=== PATIENT | female | born 1965 | race Caucasian/White ===

== ENCOUNTER 2018-02-24 23:13 | Emergency (ER) | payer OTHER ==
--- NOTE | 2018-02-24 23:19 | PDOC ---
History of Present Illness - General Stated Complaint: HEAD INJURY - History of Present Illness Initial Comments: 02/24/18 23:15 Ms. Zayas is a 52 yo female w/ no pmh who presents for evaluation after hitting her head earlier today when she walked into the frame of a low door. Patient was wearing a baseball cap when this occured and was unable to see the low frame. Patient is accompanied by personal friend Dr. Ferraro (Neurolgy) who was present at event and is concerned as he has noticed evolving raccoon eyes bilaterally. This occurred at approximately 3:30pm today. Patient denies any LOC or confusion after event however patient did have some left nostril moisture. The patient denies chest pain, shortness of breath, headache and dizziness. Denies fever, chills, nausea, vomit, diarrhea and constipation. Denies dysuria, frequency, urgency and hematuria. Allergies: NKDA Past History - Past Medical History Allergies/Adverse Reactions: Allergies Allergy/AdvReac Type Severity Reaction Status Date / Time No Known Allergies Allergy Verified 02/24/18 23:22 Review of Systems - Review of Systems Comments:: 02/24/18 23:18 GENERAL/CONSTITUTIONAL: No fever or chills. No weakness. HEAD, EYES, EARS, NOSE AND THROAT: +Headache centered on site where head injury occured. No change in vision. No ear pain or discharge. No sore throat. CARDIOVASCULAR: No chest pain or shortness of breath RESPIRATORY: No cough, wheezing, or hemoptysis. GASTROINTESTINAL: No nausea, vomiting, diarrhea or constipation. GENITOURINARY: No dysuria, frequency, or change in urination. MUSCULOSKELETAL: No joint or muscle swelling or pain. No neck or back pain. SKIN: No rash NEUROLOGIC: No headache, vertigo, loss of consciousness, or change in strength/ sensation. ENDOCRINE: No increased thirst. No abnormal weight change HEMATOLOGIC/LYMPHATIC: No anemia, easy bleeding, or history of blood clots. ALLERGIC/IMMUNOLOGIC: No hives or skin allergy. *Physical Exam - Physical Exam Comments: 02/24/18 23:19 GENERAL: Awake, alert, and fully oriented, in no acute distress HEAD: +Small swelling noted to front/top of head in midline where patient struck door jam. Normocephalic, atraumatic EYES: PERRLA, EOMI, sclera anicteric, conjunctiva clear ENT: Auricles normal inspection, hearing grossly normal, nares patent, oropharynx clear without exudates. Moist mucosa NECK: Normal ROM, supple, no lymphadenopathy, JVD, or masses LUNGS: No distress, speaks full sentences, clear to auscultation bilaterally HEART: Regular rate and rhythm, normal S1 and S2, no murmurs, rubs or gallops, peripheral pulses normal and equal bilaterally. ABDOMEN: Soft, nontender, normoactive bowel sounds. No guarding, no rebound. No masses EXTREMITIES: Normal inspection, Normal range of motion, no edema. No clubbing or cyanosis. NEUROLOGICAL: Cranial nerves II through XII grossly intact. Normal speech, normal gait, no focal sensorimotor deficits SKIN: Warm, Dry, normal turgor, no rashes or lesions noted. Medical Decision Making - Medical Decision Making 02/25/18 00:02 Ms. Zayas is a 52 yo female w/ pmh as described who presents for evaluation after head injury earlier today. Patient CT negative. Will discharge patient to home with instructions to f/u with neurology for further evaluation with concussion precautions. Patient verbalized understanding and agreement and will comply. *DC/Admit/Observation/Transfer Diagnosis at time of Disposition: Head injury Qualifiers: Encounter type: initial encounter Qualified Code(s): S09.90XA - Unspecified injury of head, initial encounter - Discharge Dispostion Disposition: HOME - Referrals Referrals: David Ferraro MD [Staff Physician] - - Patient Instructions Printed Discharge Instructions: DI for Closed Head Injury Additional Instructions: Please follow-up with Neurology as discussed. Return to ER if any increase in pain, fever, chills, altered mental status, or other concerning symptoms. - Post Discharge Activity
--- NOTE | 2018-02-24 23:36 | PDOC ---
Attending Attestation - Medical Decision Making 02/25/18 00:01 EXAM: FACIAL BONES CT W/O CONTRAST HISTORY: Facial fracture COMPARISON: None. FINDINGS: The intraorbital contents are intact. There is a left maxillary sinus retention cyst or polyp The sinuses and mastoid air cells are well aerated. There is no fracture. IMPRESSION: No fracture. Individualized dose optimization techniques were used for this CT. THIS DOCUMENT HAS BEEN ELECTRONICALLY SIGNED Lenin Kerr MD EXAM: HEAD CT WITHOUT CONTRAST HISTORY: Facial fracture COMPARISON: None. FINDINGS: The ventricular system is midline and nondilated. The sulcal pattern is normal for the patient's age. There is no bleed, mass, extra-axial fluid collection or mass effect. No skull fracture or skull lesion is identified. There is an incompletely visualized left maxillary sinus retention cyst or polyp. The other visualized paranasal sinuses and mastoid air cells are clear. IMPRESSION: No evidence of acute pathology. Individualized dose optimization techniques were used for this CT. THIS DOCUMENT HAS BEEN ELECTRONICALLY SIGNED Lenin Kerr MD Documentation prepared by Lisa Moran, acting as medical care evaluation specialist for Sarah Eckert MD <Lisa Moran - Last Filed: 02/25/18 00:00> - Resident Resident Name: Vasyl Hudson - ED Attending Attestation I have performed the following: I have examined & evaluated the patient, The case was reviewed & discussed with the resident, I agree w/resident's findings & plan, Exceptions are as noted - HPI HPI: 02/24/18 23:35 52 yo female hit her head earlier this evening and then dev headache - Physicial Exam PE: 02/24/18 23:36 wnwd conversant 52 yo female head no scalp laceration neuro axox3,ambulatory - Medical Decision Making 02/25/18 00:04 IMP CLOSED HEAD INJURY PLAN OTC MEDS -she'll follow up with Dr Ferraro if she has any further symptoms <Sarah Eckert - Last Filed: 02/25/18 00:05>
[2018-02-24 23:38] VITALS: BP 128/86; PULSE 72; TEMP 97.7; BMI 20.3
[2018-02-24] MEDS ORDERED: ACETAMINOPHEN 500 MG TABLET (FP) PO ONE (23:52)
[2018-02-24] MEDS ORDERED: ACETAMINOPHEN 325 MG TABLET (FP) ONE (23:54)
== END 2018-02-25 00:30 | disposition home or self-care (01) ==
LOC: JER 23:13
DX: S00.83XA Contusion of other part of head, initial encounter (principal); W22.09XA Striking against other stationary object, initial encounter; Y93.01 Activity, walking, marching and hiking; Y92.89 Other specified places as the place of occurrence of the external cause; Y99.8 Other external cause status
CPT/HCPCS: 70450-TC; 70486-TC; 99281-25